=== PATIENT | female | born 1970 | race Two or more races ===

== ENCOUNTER → 2023-08-13 | Outpatient (CLI) | payer BC ==
[2023-08-13 09:28] LABS: Urine Bacteria None Seen /hpf (None Seen)
[2023-08-13 09:34] LABS: Basophils # (auto) 0.1 10 ^3/uL (0-0.2); Eosinophils # (auto) 0.7 10 ^3/uL (0-0.8); Eosinophils % (auto) 10.1 % (0.0-7.0); Mean Corpuscular Hemoglobin 26.9 pg (28.0-32.0); Mean Corpuscular Hgb Conc. 32.9 g/dL (32.0-36.0); Monocytes # (auto) 0.4 10 ^3/uL (0-1.3)
[2023-08-13 09:36] LABS: Hematocrit 39.8 % (36.0-46.0); Hemoglobin 13.1 g/dL (12.2-16.2); Lymphocytes # (auto) 2.2 10 ^3/uL (0.4-5.4); Lymphocytes % (auto) 32.5 % (10.0-50.0); Mean Corpuscular Volume 81.6 fL (80.0-100.0); Monocytes % (auto) 5.8 % (0.0-12.0); Neutrophils # (auto) 3.3 10 ^3/uL (1.6-8.6); Neutrophils % (auto) 50.6 % (37.0-80.0); Red Blood Cells 4.88 10^6/uL (4.0-5.20); Red Cell Distribution Width 13.4 % (11.8-14.3); Urine Blood TRACE /uL (Negative); Urine Clarity Clear (Clear); Urine Color Yellow (Yellow); Urine Mucus FEW (None Seen); Urine Protein, UAD Negative (Negative); Urine Specific Gravity 1.026 (1.001-1.035); Urine Urobilinogen Normal (Negative); Urine WBC <1 /hpf (0 - 5); Urine pH 6.5 (5.0-9.0); White Blood Cell 6.6 10^3/uL (4.4-10.8)
[2023-08-13 10:23] LABS: Albumin 4.4 g/dL (3.2-4.8); Alkaline Phosphatase 46 U/L (46-116); Anion Gap 5 (5-15); Aspartate Aminotransferase 10 U/L (13-40); BUN/Creatinine Ratio 14.3 (10.0-20.0); Blood Urea Nitrogen 12 mg/dL (9-23); Calcium 9.2 mg/dL (8.5-10.1); Carbon Dioxide 25 mmol/L (20-30); Chloride 109 mmol/L (98-107); Cholesterol 170 mg/dL (< 200); Glucose 85 mg/dL (74-106); LDL Cholesterol 109 mg/dL (< 100); Potassium 4.1 mmol/L (3.5-5.1); Sodium 139 mmol/L (136-145); Triglycerides 119 mg/dL (< 150)
[2023-08-13 10:24] LABS: Bilirubin, Total 0.7 mg/dL (0.2-1.0); HDL Cholesterol 54 mg/dL (40-59); Total Protein 7.1 g/dL (5.7-8.2)
[2023-08-13 10:29] LABS: Alanine Aminotransferase < 9 U/L (7-40)
[2023-08-13 11:37] LABS: Folate (Folic Acid) 12.8 ng/mL (>5.38)
[2023-08-13 12:04] LABS: Uric Acid 4.3 mg/dL (3.1-7.8)
== END | disposition home or self-care (01) ==
LOC: LAB 09:15
PROVIDERS: ATTEND Internal Medicine
DX: E79.0 Hyperuricemia without signs of inflammatory arthritis and tophaceous disease (principal); D51.9 Vitamin B12 deficiency anemia, unspecified; R82.79 Other abnormal findings on microbiological examination of urine; R82.90 Unspecified abnormal findings in urine; E55.9 Vitamin D deficiency, unspecified; R94.6 Abnormal results of thyroid function studies; E61.2 Magnesium deficiency; R68.89 Other general symptoms and signs; R73.09 Other abnormal glucose
CPT/HCPCS: 36415; 80053; 80061; 81001; 82306; 82607; 82746; 83036; 84443; 84550; 85025; 87086